=== PATIENT | female | born 1995 | race Two or more races ===

== ENCOUNTER 2019-01-07 22:04 | Emergency (ER) | payer MEDICAID ==
--- NOTE | 2019-01-07 22:20 | EDPHY ---
H & P Time Seen by Provider: 01/07/19 22:18 - Personal History Tetanus Vaccine Date: 2011 - Medical/Surgical History Hx Asthma: No Hx Chronic Respiratory Disease: No Hx Diabetes: No Hx Cardiac Disease: No Hx Renal Disease: No Hx Cirrhosis: No Hx Alcoholism: No Hx HIV/AIDS: No Hx Splenectomy or Spleen Trauma: No Other PMH: denies - Social History Smoking Status: Never smoked Constitutional: Initial Vital Signs Temperature (C) 36.8 C 01/07/19 22:22 Heart Rate 86 01/07/19 22:22 Respiratory Rate 16 01/07/19 22:22 Blood Pressure 117/67 01/07/19 22:22 O2 Sat (%) 96 01/07/19 22:22 O2 Delivery Mode Room Air Allergies/Adverse Reactions: No Known Allergies Allergy (Unverified 02/01/15 17:51) Home Medications: Medication Instructions Recorded Vitamins 1 tab PO DAILY 10/16/14 Medical Decision Making ED Course/Re-evaluation: CHIEF COMPLAINT: Left ear pain HISTORY OF PRESENT ILLNESS: The patient is a 23 y/o female complaining of left ear discomfort onset several days ago. Due to this pain she presented to the emergency department. No fever, headache, body aches, lightheadedness, chest pain, heart palpitations, shortness of breath, cough, abdominal pain, urinary or bowel complaints, numbness, paresthesias. REVIEW OF SYSTEMS: A comprehensive 10 system review of systems is otherwise negative aside from elements mentioned in the history of present illness and medical decision making. PHYSICAL EXAM: HR, BP, O2 Sat, RR. Temp noted General Appearance: Alert, well hydrated, appropriate, and non-toxic appearing. Head: Atraumatic without scalp tenderness or obvious injury Eyes: Pupils equal, round, reactive to light and accommodation, EOMI, no trauma , no injection. Ears: Left TM bulging due to excess fluid. Clear bilaterally, no perforation, normal landmarks Nose: Atraumatic, no rhinorrhea, clear. Throat: There is no erythema or exudates, no lesions, normal tonsils, mucus membranes moist. Neck: Supple, 2+ carotid upstroke, nontender, no lymphadenopathy. Respiratory: No retractions, no distress, no wheezes, and no accessory muscle use. Lungs are clear to auscultation bilaterally. Cardiovascular: Regular rate and rhythm, no murmurs, rubs, or gallops. Bilateral carotid, radial, dorsalis pedis, and posterior tibial pulses intact. Good capillary refill all extremities. Gastrointestinal: Abdomen is soft, nontender, non-distended, no masses, no rebound, no guarding, no peritoneal signs. Musculoskeletal: Normal active ROM of all extremities, atraumatic. Neurological: Alert, appropriate, and interactive. The patient has normal DTRs and non-focal cranial nerves, motor, sensory, and cerebellar exam. Skin: No rashes, good turgor, no nodules on palpation. Past medical history: Denies Past surgical history: Denies Family history: Denies Social history: Employed, single, lives in [place] DIAGNOSTICS/PROCEDURES/CRITICAL CARE TIME: Not indicated. DIFFERENTIAL DIAGNOSIS: The differential diagnosis for the patient's ear pain included but was not limited to tympanic membrane bulge, otitis media, otitis externa, perforated TM. MEDICAL DECISION MAKING: The patient is a 23 y/o female presenting with left ear discomfort onset several days ago. On exam she has fluid behind her left TM without signs of infection. She is not systemically ill. I have advised her to use Mucinex and Flonase as well as follow up with ENT. Return precautions provided; patient is comfortable with this plan. Departure - Departure Clinical Impression: Left ear pain Condition: Good Instructions: Earache (ED) Additional Instructions: 1. Take Flonase and Mucinex as directed. 2. Follow-up with your primary care physician or ENT within 72 hours. 3. Return to the emergency department immediately for recurrence of headache, nausea, vomiting, numbness, weakness, neck pain, fever or other concerns. Referrals: Mary Rivera MD [Primary Care Provider] - As per Instructions Brendan Vergara MD [Medical Doctor] - As per Instructions Report Scribed for: Saji Smith Report Scribed by: Gabbi Mckeon Date of Report: 01/07/19 Time of Report: 22:22
[2019-01-07 22:24] VITALS: BP 117/67
== END 2019-01-07 22:30 | disposition home or self-care (01) ==
DX: H92.02 Otalgia, left ear (principal)